=== PATIENT | female | born 1935 | race Caucasian/White ===

== ENCOUNTER 2018-07-21 21:04 | Emergency (ER) | payer MEDICARE, BC ==
[2018-07-21 21:11] VITALS: BP 175/70
[2018-07-21] MEDS ORDERED: Morphine 2 MG/ML Syringe IVPUSH ONE ×2 (21:15→22:33)
[2018-07-21] MEDS ORDERED: Ondansetron 4 MG/2 ML SDV IVPUSH ONE ×2 (21:15→22:31)
--- NOTE | 2018-07-21 21:19 | EDM.PDOC ---
<Lisa Atkinson E - Last Filed: 07/21/18 21:49> ED HPI GENERAL MEDICAL PROBLEM - General Chief Complaint: Lower Extremity Injury/Pain Stated Complaint: HIP FRACKER Time Seen by Provider: 07/21/18 21:08 Source of Information: Reports: Patient History Limitations: Reports: No Limitations - History of Present Illness INITIAL COMMENTS - FREE TEXT/NARRATIVE: HISTORY AND PHYSICAL: History of present illness: Patient is an 82-year-old female who presents to the emergency room with complaints of right shoulder and right hip pain post fall. She states she was ambulating and had tripped and fallen on her right side. She denies hitting her head or any loss of consciousness. She does have pain of the right shoulder and hip with movement and palpation. Skin tear to right elbow. She states she was unable to get up on her own and did call an ambulance. She denies any fever, chills, chest pain, shortness of breath or cough. Denies any abdominal pain, nausea, vomiting, diarrhea or constipation. The fall she had no systemic complaints and was in good health. Review of systems: As per history of present illness and below otherwise all systems reviewed and negative. Past medical history: As per history of present illness and as reviewed below otherwise noncontributory. Surgical history: As per history of present illness and as reviewed below otherwise noncontributory. Social history: No reported history of drug or alcohol abuse. Family history: As per history of present illness and as reviewed below otherwise noncontributory. Physical exam: General: Well developed and well-nourished 82-year-old female. Alert and oriented. Nontoxic appearing and in no acute distress. HEENT: Atraumatic, normocephalic, pupils equal and reactive bilaterally, negative for conjunctival pallor or scleral icterus, mucous membranes moist, throat clear, neck supple, nontender, trachea midline. No drooling or trismus noted. No meningeal signs Lungs: Clear to auscultation, breath sounds equal bilaterally, chest nontender. Heart: S1S2, regular rate and rhythm without overt murmur Abdomen: Soft, nondistended, nontender. Negative for masses or hepatosplenomegaly. Negative for costovertebral tenderness. Pelvis: Stable nontender. Genitourinary: Deferred. Rectal: Deferred. Skin: Skin tear to right elbow. No lesions or rashes noted. Extremities: Pain with movement and palpation of the right shoulder and right hip. Appears to have swelling at the right anterior delts/shoulder. Strong radial pulse. Possible shortening and rotation of the right hip. Pain with palpation of the right anterior hip crest. No pelvic instability. Strong pedal and pretibal pulses bilaterally. +CMS. + 1 bilateral edema noted. She is negative for cords or calf pain. Neurovascular unremarkable. C-spine/Back: No pinpoint vertebral tenderness upon palpation. No crepitus, step offs or obvious deformities. Normal variance of thoracic kyphosis. Denies any urinary or fecal incontinence. Neuro: Awake, alert, oriented. Cranial nerves II through XII unremarkable. Cerebellum unremarkable. Motor and sensory unremarkable throughout. Exam nonfocal. Notes: Discussed the risks versus benefits of head and neck CT. Patient declined hitting her head and does not have any pain with palpation of the cervical spine. She does have severe kyphosis which prevents her from lying flat on her back. Patient and daughter are agreeable that they would like to do over the head and neck CT at this time. X-rays will be done of the chest, hip and shoulder. Wound care to right elbow completed. Dr Tran to continue to follow this patient at 2200. Diagnostics: CBC, CMP, troponin, EKG, one view chest, UA, CT head, CT cervical spine, right shoulder x-ray, right hip with pelvis Therapeutics: Morphine, Zofran, Wound care, Bacitracin ointment Plan: Dr Tran to continue to follow this patient at 2200. Definitive disposition and diagnosis as appropriate pending reevaluation and review of above. Right Hip Pain Score (Numeric/FACES): 7 - Related Data Allergies Allergy/AdvReac Type Severity Reaction Status Date / Time banana Allergy Vomiting Verified 09/17/15 16:14 Sulfa (Sulfonamide Allergy Rash Verified 08/14/15 16:45 Antibiotics) Home Meds: Home Meds Acetaminophen [Tylenol] 0 mg PO ASDIRECTED PRN 08/14/15 [History] Multivit with Calcium,Iron,Min [Multivitamins [id number]] 1 each PO DAILY # 30 tablet 08/16/15 [Rx] New Medications Unsure What They Are. 3 dose PO DAILY 09/17/15 [History] Past Medical History Other HEENT History: wear glasses for driving Other Gastrointestinal History: "small gastrci ulcers" Other Musculoskeletal History: kyphosis of back - fair neck extension. fracture on the left leg ( 15 years ago)-- healed Other Neuro History: sinus migraine Review of Systems - Review of Systems Review Of Systems: ROS reveals no pertinent complaints other than HPI. ED EXAM, GENERAL - Physical Exam Exam: See Below (See dictation) Course - Vital Signs Last Recorded V/S: Last Vital Signs Temp 35.7 C 07/21/18 21:07 Pulse 68 07/21/18 21:07 Resp 16 07/21/18 21:07 BP 175/70 H 07/21/18 21:07 Pulse Ox 87 L 07/21/18 21:07 - Orders/Labs/Meds Orders: Active Orders 24 hr Category Date Time Status Communication Order [RC] STAT Care 07/21/18 21:30 Active EKG Documentation Completion [RC] STAT Care 07/21/18 21:09 Active Chest 1V Frontal [CR] Stat Exams 07/21/18 21:14 Taken Hip Min 2V or 3V w Pelvis Rt [CR] Stat Exams 07/21/18 21:09 Taken Shoulder Comp Rt [CR] Stat Exams 07/21/18 21:09 Taken UA W/MICROSCOPIC [URIN] Stat Lab 07/21/18 21:14 Ordered Labs: Laboratory Tests 07/21/18 07/21/18 Range/Units 21:21 21:21 WBC 10.58 (4.0-11.0) K/uL RBC 4.22 L (4.30-5.90) M/uL Hgb 12.6 (12.0-16.0) g/dL Hct 40.0 (36.0-46.0) % MCV 94.8 (80.0-98.0) fL MCH 29.9 (27.0-32.0) pg MCHC 31.5 (31.0-37.0) g/dL RDW Std Deviation 56.8 (28.0-62.0) fl RDW Coeff of Dena 16 H (11.0-15.0) % Plt Count 377 (150-400) K/uL MPV 10.30 (7.40-12.00) fL Neut % (Auto) 63.7 (48.0-80.0) % Lymph % (Auto) 22.3 (16.0-40.0) % Bureau % (Auto) 8.2 (0.0-15.0) % Eos % (Auto) 5.3 (0.0-7.0) % Baso % (Auto) 0.5 (0.0-1.5) % Neut # (Auto) 6.7 H (1.4-5.7) K/uL Lymph # (Auto) 2.4 (0.6-2.4) K/uL Bureau # (Auto) 0.9 H (0.0-0.8) K/uL Eos # (Auto) 0.6 (0.0-0.7) K/uL Baso # (Auto) 0.1 (0.0-0.1) K/uL Nucleated RBC % 0.0 /100WBC Nucleated RBCs # 0 K/uL Sodium 141 (136-145) mmol/L Potassium 3.9 (3.5-5.1) mmol/L Chloride 105 (98-107) mmol/L Carbon Dioxide 31.7 (21.0-32.0) mmol/L BUN 16 (7.0-18.0) mg/dL Creatinine 0.7 (0.6-1.0) mg/dL Est Cr Clr Drug Dosing 44.51 mL/min Estimated GFR (MDRD) > 60.0 ml/min Glucose 146 H (74-106) mg/dL Calcium 8.7 (8.5-10.1) mg/dL Total Bilirubin 0.3 (0.2-1.0) mg/dL AST 24 (15-37) IU/L ALT 20 (14-63) IU/L Alkaline Phosphatase 140 H (46-116) U/L Troponin I < 0.050 (0.000-0.056) ng/mL Total Protein 6.4 (6.4-8.2) g/dL Albumin 3.0 L (3.4-5.0) g/dL Globulin 3.4 (2.0-3.5) g/dL Albumin/Globulin Ratio 0.9 L (1.3-2.8) Meds: Medications Discontinued Medications Generic Name Dose Route Start Last Admin Trade Name Freq PRN Reason Stop Dose Admin Bacitracin 1 dose 07/21/18 21:30 Bacitracin Oint 1 Gm TOP 07/21/18 21:31 ONETIME ONE Morphine Sulfate 2 mg 07/21/18 21:15 07/21/18 21:38 Morphine IVPUSH 07/21/18 21:16 1 mg ONETIME ONE Administration Ondansetron HCl 4 mg 07/21/18 21:15 07/21/18 21:39 Zofran IVPUSH 07/21/18 21:16 4 mg ONETIME ONE Administration Departure - Departure Disposition: DC/Tfer to [facility] 02 Clinical Impression: Intertrochanteric fracture, hip, Humerus fracture - Discharge Information Forms: ED Department Discharge <Terence Tran - Last Filed: 07/21/18 22:33> ED HPI GENERAL MEDICAL PROBLEM - History of Present Illness INITIAL COMMENTS - FREE TEXT/NARRATIVE: Patient's emergency department course is unremarkable x-rays demonstrate a right intertrochanteric fracture of her hip as well as a proximal humerus fracture I discussed case with Dr. Jaquez at [facility] graciously accepted the patient for transfer I discussed case with patient and her daughter she will go by ground ambulance with a diagnosis of #1 observation status post fall #2 right hip fracture #3 right humerus fracture Departure - Departure Time of Disposition: 22:32 Condition: Good - Discharge Information *PRESCRIPTION DRUG MONITORING PROGRAM REVIEWED*: Not Applicable *COPY OF PRESCRIPTION DRUG MONITORING REPORT IN PATIENT GILL: Not Applicable
[2018-07-21] MEDS ORDERED: Bacitracin Oint 1 GM U/D Packet TOP ONE (21:30)
[2018-07-21 21:53] LABS: CHLORIDE,CL 105 mmol/L (98-107); SODIUM,NA 141 mmol/L (136-145)
--- NOTE | 2018-07-22 11:14 | CR ---
EXAM DATE: 07/21/18 PATIENT'S AGE: 82 Patient: OZZY KRAUSE Facility: [place], [place] Site . Site : 1935 Study: XRay Chest [id number]/21/2018 10:32:24 PM Ordering Physician: Marc Pratt Final Report: INDICATION: Fall, chest injury TECHNIQUE: Chest radiograph 1 view COMPARISON: 02/03/2013 FINDINGS: Severe degradation of image quality noted due to body habitus. Mediastinum: The mediastinum is normal in appearance. The heart silhouette is normal in size and morphology. Lung: The apices are obscured by the patient`s head and chin. Moderate to severe perihilar atelectasis and edema noted. Bibasilar atelectasis seen. No sign of pleural effusion seen. No pneumothorax is identified. Musculoskeletal: Fracture deformity in the surgical neck of the right humerus is noted. Severe diffuse osteopenia is noted. IMPRESSIONS: 1. Fracture deformity in the surgical neck of the right humerus is noted. 2. Moderate to severe perihilar atelectasis and edema noted. Bibasilar atelectasis seen. Dictated by Qamar Stanton MD @ 07/21/2018 10:36:57 PM Dictated by: Qamar Stanton MD @ 07/21/2018 22:37:00 (Electronic Signature) Report Signed by Proxy. [facility]ITAL[facility]enny
--- NOTE | 2018-07-22 11:16 | CR ---
EXAM DATE: 07/21/18 PATIENT'S AGE: 82 Patient: OZZY KRAUSE Facility: [place], [place] Site . Site : 1935 Study: XRay Shoulder Right [id number]/21/2018 10:32:39 PM Ordering Physician: Marc Pratt Final Report: INDICATION: Fall, shoulder injury TECHNIQUE: Shoulder radiograph 2 views right COMPARISON: None FINDINGS: Bone: A displaced transverse fracture of the surgical neck of the humerus is noted. Severe osteopenia is present. Joint: The glenohumeral is unremarkable. The acromioclavicular joint is unremarkable. Soft tissue: Unremarkable. The visualized hemithorax is unremarkable in appearance. No radiopaque foreign bodies are seen. IMPRESSION: 1. A displaced transverse fracture of the surgical neck of the humerus is noted. Dictated by Qamar Stanton MD @ 07/21/2018 10:37:44 PM Dictated by: Qamar Stanton MD @ 07/21/2018 22:37:49 (Electronic Signature) Report Signed by Proxy. [facility]enny
--- NOTE | 2018-07-22 11:17 | CR ---
EXAM DATE: 07/21/18 PATIENT'S AGE: 82 Patient: OZZY KRAUSE Facility: [place], [place] Site . Site : 1935 Study: XRay Hip Right w/pelvis [id number]/21/2018 10:32:59 PM Ordering Physician: Marc Pratt Final Report: INDICATION: Fall, hip pain TECHNIQUE: Pelvis radiograph, Hip radiograph 3 views right COMPARISON: None FINDINGS: Bone: There is a right intertrochanteric fracture of the proximal femur noted with varus angulation. The right iliac crest is partially excluded. Severe diffuse osteopenia is noted. Joint: The hip joint is unremarkable. The visualized sacroiliac joints are unremarkable in appearance. The pubic symphysis is normal in appearance. Soft tissue: Unremarkable. The visualized bowel gas pattern of the pelvis is unremarkable in appearance. No radiopaque foreign bodies are seen. IMPRESSION: 1. There is a right intertrochanteric fracture of the proximal femur noted with varus angulation. Dictated by Qamar Stanton MD @ 07/21/2018 10:38:40 PM Dictated by: Qamar Stanton MD @ 07/21/2018 22:38:48 (Electronic Signature) Report Signed by Proxy. BESSIE
== END 2018-07-21 23:03 ==
LOC: MW.ED 21:04
DX: S72.141A Displaced intertrochanteric fracture of right femur, initial encounter for closed fracture (principal); S42.211A Unspecified displaced fracture of surgical neck of right humerus, initial encounter for closed fracture; S51.011A Laceration without foreign body of right elbow, initial encounter; Z91.018 Allergy to other foods; Z88.2 Allergy status to sulfonamides; W01.0XXA Fall on same level from slipping, tripping and stumbling without subsequent striking against object, initial encounter
CPT/HCPCS: 36415; 71045; 73030; 73502; 80053; 84484; 85025; 93005; 96374; 96375; 96376; 99285; J2270; J2405